=== PATIENT | male | born 1980 | race African-American/Black ===

== ENCOUNTER 2021-03-09 14:57 | Inpatient (IN) | payer OTHER ==
--- NOTE | 2021-03-09 16:04 | ED ---
Chest Pain HPI - General Chief Complaint: Chest Pain Stated Complaint: Chest Pain Time Seen by Provider: 03/09/21 15:32 Source: patient Mode of arrival: ambulatory Limitations: no limitations - History of Present Illness Initial Comments: Jack is a 40-year-old male, cigarette smoker with no significant past medical history who presents to the ER today for reevaluation of chest pain with lab and EKG abnormalities which were diagnosed at an outside hospital. Patient reports in December of this year he received edema burn vaccine for COVID-19. Patient states that for approximately 3 weeks after the vaccine he had chest pain. That did seem to improve for nearly a month however he's had persistent shortness of breath and a cough which is productive of green phlegm. For the past 3 or 4 days he's had recurrent episodes of chest pain. 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 That workup found EKG with deep T-wave inversions laterally, troponin was 0.11 and 0.12 respectively. The hospital did not have cardiology availability and recommended transfer however due to capacity at all [facility] he was told he would be transferred to [place] or somewhere in [place]. Patient chose to leave [facility] and come to this hospital as this is closest to his home. Patient reports that this morning the pain was severe at the time of exam patient is not in any significant discomfort. - Related Data Home Medications Medication Instructions Recorded Confirmed No Known Home Medications 03/09/21 03/09/21 Allergies Allergy/AdvReac Type Severity Reaction Status Date / Time No Known Allergies Allergy Verified 03/09/21 16:48 Review of Systems ROS Statement: Those systems with pertinent positive or pertinent negative responses have been documented in the HPI. ROS Other: All systems not noted in ROS Statement are negative. EKG Findings - EKG Comments: EKG Findings:: EKG was obtained due to complaint of chest pain, EKG was obtained at 1523, rate is 81 rhythm is sinus there is a normal axis, there are normal intervals, ME 164 QRS [address] QTC [address] elevations but there are T-wave inversions in the inferior and lateral leads with deep T-wave inversions laterally. This is concerning for ischemia or inflammation. Past Medical History Past Medical History: No Reported History History of Any Multi-Drug Resistant Organisms: None Reported Past Surgical History: No Surgical Hx Reported Past Psychological History: No Psychological Hx Reported Smoking Status: Current every day smoker Past Alcohol Use History: None Reported Past Drug Use History: None Reported - Past Family History Mother Family Medical History: Hypertension Father Family Medical History: No Reported History General Exam - General Exam Comments Initial Comments: Physical Exam GENERAL: Patient is well-developed and well-nourished. Patient is nontoxic and well- hydrated and is in no distress. HENT: Normocephalic, Atraumatic. EYES: PERRL, EOMI PULMONARY: Unlabored respirations. No audible rales rhonchi or wheezing was noted. CARDIOVASCULAR: There is a regular rate and rhythm without any murmurs gallops or rubs. ABDOMEN: Soft and nontender with normal bowel sounds. SKIN: Skin is clear with no lesions or rashes and otherwise unremarkable. : Deferred NEUROLOGIC: Patient is alert and oriented x3. Moving all extremities spontaneously MUSCULOSKELETAL: Normal extremities with adequate strength and full range of motion. No lower extremity swelling or edema. No calf tenderness. PSYCHIATRIC: Normal psychiatric evaluation. Limitations: no limitations Course Vital Signs 03/09/21 03/09/21 03/09/21 15:07 15:41 18:05 Temperature 97.9 F Pulse Rate 89 86 73 Respiratory 18 20 20 Rate Blood Pressure 128/92 121/87 O2 Sat by Pulse 97 98 97 Oximetry 03/09/21 20:22 Temperature 98.2 F Pulse Rate 82 Respiratory 18 Rate Blood Pressure 114/81 O2 Sat by Pulse 98 Oximetry Chest Pain MDM - MDM EKG was obtained in triage, based on EKG abnormalities the patient was taken immediately to the resuscitation bay for complete cardiac workup History was obtained from the patient, outside labs were reviewed patient did have elevated d-dimer and troponin outside lab, EKG today is unchanged from EKG on 03/07 and 03/08 Repeat labs were obtained, patient's d-dimer is positive however patient had a get a PE study 2 days ago, patient's troponin is elevated more so today than previous. Patient will be started on anticoagulation and cardiology consult. Patient care discussed with Dr Nguyen who agrees with plan for trending troponins, heparinized, echo and request the inflammatory markers be obtained as well. These orders were placed. Patient care was discussed with Dr. Barrow of the [facility] who accepts the admission Disposition Clinical Impression: Elevated troponin, Chest pain Disposition: ADMITTED IP TO THIS HOSP Condition: Serious
[2021-03-09 16:13] LABS: Basophils # (A) 0.1 k/uL (0-0.2); Basophils % (A) 1 %; Eosinophils # (A) 0.2 k/uL (0-0.7); Eosinophils % (A) 4 %; HCT 45.3 % (39.0-53.0); Lymphocytes % (A) 35 %; MCH 30.6 pg (25.0-35.0); MCHC 33.2 g/dL (31.0-37.0); MCV 92.1 fL (80.0-100.0); Mean Platelet Volume 9.7; Monocytes # (A) 0.5 k/uL (0-1.0); Monocytes % (A) 8 %; Neutrophils # (A) 2.6 k/uL (1.3-7.7); Neutrophils % (A) 48 %; Platelet Count 205 k/uL (150-450); RBC 4.91 m/uL (4.30-5.90); RDW 13.8 % (11.5-15.5); WBC 5.5 k/uL (3.8-10.6)
[2021-03-09 16:25] LABS: Partial Thromboplastin Time 25.9 sec (22.0-30.0); Prothrombin Time 10.8 sec (9.0-12.0)
[2021-03-09 16:26] LABS: ALT 44 U/L (4-49); AST 50 U/L (17-59); African American GFR (CKD) >90 (>60 ml/min/1.73 sqM); Albumin 4.3 g/dL (3.5-5.0); Alkaline Phosphatase 88 U/L (38-126); Anion Gap 9 mmol/L; Blood Urea Nitrogen 10 mg/dL (9-20); Calcium 10.1 mg/dL (8.4-10.2); Carbon Dioxide 23 mmol/L (22-30); Chloride 104 mmol/L (98-107); Glucose 94 mg/dL (74-99); Magnesium 1.5 mg/dL (1.6-2.3); Non-African American GFR(CKD) >90 (>60 ml/min/1.73 sqM); Sodium 136 mmol/L (137-145); Total Bilirubin 0.6 mg/dL (0.2-1.3); Total Protein 8.1 g/dL (6.3-8.2)
--- NOTE | 2021-03-09 16:26 | XR ---
EXAMINATION TYPE: XR chest 2V DATE OF EXAM: 03/09/2021 COMPARISON: None HISTORY: 40 year-old male chest pain and abnormal EKG TECHNIQUE: PA and lateral views FINDINGS: Heart normal size. Aorta within normal limits. Masslike perihilar opacities. Interstitial prominence. No pleural effusion. IMPRESSION: Unable to exclude underlying hilar lymphadenopathy or hilar masses. Further evaluation is warranted. Interstitial density could reflect bronchitis, chronic asthma, or atypical pneumonia.
[2021-03-09 16:27] LABS: Potassium 4.6 mmol/L (3.5-5.1)
[2021-03-09] MEDS ORDERED: HEPARIN SODIUM 1,000 UN/ML (10ML VL) IV PRN (17:03)
[2021-03-09] MEDS ORDERED: HEPARIN SODIUM 1,000 UN/ML (10ML VL) IV ONE (17:03)
[2021-03-09] MEDS: HEPARIN SOD,PORK IN 0.45% NACL 25,000 UNIT in 0.45% NACL 1 250ML.BAG IV SCH (17:36)
[2021-03-09 18:31] LABS: INR 1.2 (<1.2); Partial Thromboplastin Time 75.8 sec (22.0-30.0); Prothrombin Time 12.7 sec (9.0-12.0)
--- NOTE | 2021-03-09 23:57 | P.HPIM ---
History of Present Illness H&P Date: 03/09/21 The patient is a 40-year-old male with a PMH of tobacco abuse (who presents to the emergency room with complaints of chest discomfort and shortness of breath. The patient reports that his symptoms initially started a day after he received his Moderna COVID-19 vaccine on 12/17/2020. He reports having intermittent substernal chest discomfort, exertional for roughly 3 weeks after which it resolved spontaneously. He reports that the pain again returned 2-3 weeks ago and is now accompanied with shortness of breath. He reports that the pain continues to be exertional, starting from his upper chest and radiating to the right and left sides of his chest, 10 out of 10 on maximal intensity, nonple uritic, alleviated with rest, strongly exertional in nature. 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 The patient was advised that since the facility did not have a cardiology service, that he would need to be transferred to hospitals in either [place] or [place], at which time the patient decided to sign out AGAINST MEDICAL ADVICE and returned to his home state of [place] and subsequently presented to our emergency room. He states that he's continued to have intermittent substernal discomfort which is not exertional and nonexertional in nature, 4 out of 10 at time of the interview. Denied fever, chills, cough. Denied headaches, neck pain, visual disturbances, weakness, numbness, tingling. Denied nausea, vomiting, abdominal pain, diarrhea. EKG in the emergency room revealed a normal sinus rhythm with left axis deviation at [address] depressions in inferior leads 2, 3, aVF, along with V3 to V6. Laboratory evaluation revealed a troponin of 0.285 and magnesium 1.5. The patient was started on heparin infusion and is being admitted for further management including cardiology consult. Review of systems: Pertinent positives and negatives as discussed in HPI, a complete review of systems was performed and all other systems are negative. Physical examination: General: non toxic, no distress, appears at stated age, overweight Derm: no unusual rashes/lesions no unusual ecchymoses, warm, dry Head: atraumatic, normocephalic, symmetric Eyes: EOMI, no lid lag, anicteric sclera, pupils equal round reactive to light ENT: Nose and ears atraumatic, no thrush, no pharyngeal erythema Neck: No thyromegaly, no cervical lymphadenopathy, trachea midline, supple Mouth: no lip lesion, mucus membranes moist Cardiovascular: S1S2 reg, no murmur, positive posterior tibial pulse bilateral, no edema, capillary refill less than 2 seconds Lungs: CTA bilateral, no rhonchi, no rales , no accessory muscle use Abdominal: soft, nontender to palpation, no guarding, no appreciable organomegaly, normal bowel sounds Ext: no gross muscle atrophy, muscle strength 5 out of 5 in all 4 extremities grossly, no contractures, Neuro: CN II-XI grossly intact, light touch intact all 4 extremities, finger to nose within normal limits, Psych: Alert, oriented, appropriate affect Assessment/plan Chest pain, NSTEMI vs Myocarditis in setting of COVID vaccine administration -Cardiac consulted -Cardiac monitoring -Monitor inflammatory markers -Echocardiogram ordered -Trend troponin -Continue with aspirin Hypomagnesemia -Replace and monitor DVT prophylaxis -Heparin infusion The patient is admitted with an anticipated greater than 2 midnight stay for evaluation of chest pain CODE STATUS: Full Code Discussed with: Patient Anticipated discharge date: 2-[address]: Home Past Medical History Past Medical History: No Reported History History of Any Multi-Drug Resistant Organisms: None Reported Past Surgical History: No Surgical Hx Reported Past Anesthesia/Blood Transfusion Reactions: No Reported Reaction Past Psychological History: No Psychological Hx Reported Smoking Status: Current every day smoker Past Alcohol Use History: None Reported Past Drug Use History: None Reported - Past Family History Mother Family Medical History: Hypertension Father Family Medical History: Hypertension Medications and Allergies Home Medications Medication Instructions Recorded Confirmed Type No Known Home Medications 03/09/21 03/09/21 History Allergies Allergy/AdvReac Type Severity Reaction Status Date / Time No Known Allergies Allergy Verified 03/09/21 16:48 Physical Exam Vitals: Vital Signs Temp Pulse Pulse Resp BP BP Pulse Ox 03/09/21 21:00 97.7 F 84 20 124/86 99 03/09/21 20:22 98.2 F 82 18 114/81 98 03/09/21 18:05 73 20 121/87 97 03/09/21 15:41 86 20 98 03/09/21 15:07 97.9 F 89 18 128/92 97 Intake and Output 03/09/21 03/09/21 03/10/21 14:59 22:59 06:59 Intake Total 500 Balance 500 Intake: Oral 500 Other: Voiding Method Toilet Weight 90.718 kg Results CBC & Chem 7: 03/09/21 16:00 03/09/21 16:00 Labs: Abnormal Lab Results - Last 24 Hours (Table) 03/09/21 03/09/21 03/09/21 Range/Units 16:00 16:00 16:00 PT (9.0-12.0) sec INR (<1.2) APTT (22.0-30.0) sec D-Dimer 0.91 H (<0.60) mg/L FEU Sodium 136 L (137-145) mmol/L Magnesium 1.5 L (1.6-2.3) mg/dL Troponin I 0.285 H* (0.000-0.034) ng/mL 03/09/21 03/09/21 03/09/21 Range/Units 18:11 18:11 21:32 PT 12.7 H (9.0-12.0) sec INR 1.2 H (<1.2) APTT 75.8 H (22.0-30.0) sec D-Dimer (<0.60) mg/L FEU Sodium (137-145) mmol/L Magnesium (1.6-2.3) mg/dL Troponin I 0.266 H* 0.282 H* (0.000-0.034) ng/mL Thrombosis Risk Factor Assmnt - Choose All That Apply Each Factor Represents 1 point: Obesity (BMI >25), Serious lung disease incl. pneumonia (< 1month) Other Risk Factors: No Other congenital or acquired thrombophilia - If yes, enter type in comment: No Thrombosis Risk Factor Assessment Total Risk Factor Score: 2 Thrombosis Risk Factor Assessment Level: Low Risk
[2021-03-10] MEDS: MAGNESIUM SULFATE-D5W PMX 1 GM in DEXTROSE/WATER 1 100ML.BAG IVPB SCH ×2 (01:12→02:41)
[2021-03-10] MEDS ORDERED: HEPARIN SODIUM,PORCINE 10,000 UNIT in SODIUM CHLORIDE 0.9% 1,000 ML IRRIGATION PRN (07:00)
[2021-03-10] MEDS ORDERED: HEPARIN SODIUM,PORCINE 2,500 UNIT in SODIUM CHLORIDE 0.9% 250 ML IRRIGATION PRN (07:00)
[2021-03-10] MEDS ORDERED: ALPRAZolam 0.5 MG TAB PO PRN (07:18)
[2021-03-10] MEDS ORDERED: ASPIRIN 325 MG TAB PO STA (07:18)
[2021-03-10] MEDS ORDERED: ATORVASTATIN 80 MG TAB PO STA (07:18)
[2021-03-10] MEDS ORDERED: ALPRAZolam 0.25 MG TAB PO PRN (07:18)
[2021-03-10 08:38] LABS: INR 1.1 (<1.2); Partial Thromboplastin Time 55.8 sec (22.0-30.0); Prothrombin Time 11.5 sec (9.0-12.0)
--- NOTE | 2021-03-10 08:38 | P.CRDCN ---
History of Present Illness Consult date: 03/10/21 Chief complaint: Chest pain History of present illness: This is a very pleasant 40-year-old gentleman with a past medical history significant for smoking was admitted to the hospital for further evaluation of chest discomfort. The patient has been experiencing intermittent episodes of chest discomfort started about 2 months ago. 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 He is from this area. He has been experiencing intermittent episodes of chest discomfort seems to be concerning for angina. He stated that the chest discomfort mostly with exertion but sometimes with resting. Its in the middle of the chest as a pressure on the chest with radiation to the right arm as well as to the neck. Its associated with shortness of breath and sometimes with sweating. No dizziness or lightheadedness and no feeling of heart racing or fluttering and no presyncope or syncope. His troponin came in to be abnormal. The EKG is very concerning for severe underlying coronary artery disease involving the LAD. He does have T-wave inversion with biphasic T wave as well in the anteroseptal leads. Echocardiogram is in process to be done. Currently he is on heparin. Giving the above I recommended proceeding with coronary angiogram to rule out severe underlying coronary artery disease. His risk factors include only smoking but he stated he smoked marijuana. I'm going to obtain a urine drug screen as well. Past Medical History Past Medical History: No Reported History History of Any Multi-Drug Resistant Organisms: None Reported Past Surgical History: No Surgical Hx Reported Past Anesthesia/Blood Transfusion Reactions: No Reported Reaction Past Psychological History: No Psychological Hx Reported Smoking Status: Current every day smoker Past Alcohol Use History: None Reported Past Drug Use History: None Reported - Past Family History Mother Family Medical History: Hypertension Father Family Medical History: Hypertension Medications and Allergies Home Medications Medication Instructions Recorded Confirmed Type No Known Home Medications 03/09/21 03/09/21 History Allergies Allergy/AdvReac Type Severity Reaction Status Date / Time No Known Allergies Allergy Verified 03/09/21 16:48 Physical Exam Vitals: Vital Signs Temp Pulse Pulse Resp BP BP Pulse Ox 03/10/21 04:00 97.6 F 66 16 119/83 95 03/10/21 00:00 98.1 F 96 16 114/79 98 03/09/21 21:00 97.7 F 84 20 124/86 99 03/09/21 20:22 98.2 F 82 18 114/81 98 03/09/21 18:05 73 20 121/87 97 03/09/21 15:41 86 20 98 03/09/21 15:07 97.9 F 89 18 128/92 97 Intake and Output 03/09/21 03/10/21 03/10/21 22:59 06:59 14:59 Intake Total 500 72.833 Balance 500 72.833 Intake: Intake, IV Titration 72.833 Amount Heparin Sod,Pork in 0.45% 72.833 NaCl 25,000 unit In 0.45 % NaCl 1 250ml.bag @ 11. 023 UNITS/KG/HR 10 mls/hr IV .Q24H [facility] Rx#: [id number] Oral 500 Other: Voiding Method Toilet Toilet # Voids 1 Weight 90.718 kg - Constitutional General appearance: no acute distress - Respiratory Respiratory: bilateral: CTA - Cardiovascular Rhythm: regular Heart sounds: normal: S1, S2 Abnormal Heart Sounds: systolic murmur Results 03/09/21 16:00 03/09/21 16:00 Cardiac Enzymes 03/09/21 03/09/21 03/09/21 Range/Units 16:00 16:00 18:11 AST 50 (17-59) U/L Troponin I 0.285 H* 0.266 H* (0.000-0.034) ng/mL 03/09/21 Range/Units 21:32 AST (17-59) U/L Troponin I 0.282 H* (0.000-0.034) ng/mL Coagulation 03/09/21 03/09/21 03/09/21 Range/Units 16:00 18:11 23:00 PT 10.8 12.7 H (9.0-12.0) sec APTT 25.9 75.8 H 56.7 H (22.0-30.0) sec CBC 03/09/21 Range/Units 16:00 WBC 5.5 (3.8-10.6) k/uL RBC 4.91 (4.30-5.90) m/uL Hgb 15.0 (13.0-17.5) gm/dL Hct 45.3 (39.0-53.0) % Plt Count 205 (150-450) k/uL Comprehensive Metabolic Panel 03/09/21 Range/Units 16:00 Sodium 136 L (137-145) mmol/L Potassium 4.6 (3.5-5.1) mmol/L Chloride 104 (98-107) mmol/L Carbon Dioxide 23 (22-30) mmol/L BUN 10 (9-20) mg/dL Creatinine 0.89 (0.66-1.25) mg/dL Glucose 94 (74-99) mg/dL Calcium 10.1 (8.4-10.2) mg/dL AST 50 (17-59) U/L ALT 44 (4-49) U/L Alkaline Phosphatase 88 (38-126) U/L Total Protein 8.1 (6.3-8.2) g/dL Albumin 4.3 (3.5-5.0) g/dL Current Medications Generic Name Dose Route Start Last Admin Trade Name Freq PRN Reason Stop Dose Admin Alprazolam 0.25 mg 03/10/21 07:18 Alprazolam 0.25 Mg Tab PO Q6HR PRN Mild Anxiety Alprazolam 0.5 mg 03/10/21 07:18 Alprazolam 0.5 Mg Tab PO Q6HR PRN Moderate Anxiety Aspirin 325 mg 03/11/21 09:00 Aspirin 325 Mg Tab PO DAILY TAJ Heparin Sodium (Porcine) 0 unit 03/09/21 17:03 Heparin Sodium 1,000 Un/Ml (10ml Vl) IV PER PROTOCOL PRN Low PTT Protocol Heparin Sodium/Sodium Chloride 250 mls @ 10 mls/hr 03/09/21 17:15 03/10/21 00:53 25,000 unit/ Sodium Chloride IV 11.023 units/kg/hr .Q24H TAJ 10 mls/hr Titration Protocol 11.023 UNITS/KG/HR Sodium Chloride 1,000 ml/ IV 1,000 mls @ 90.718 mls/hr 03/10/21 07:30 Solution IV .Q11H2M TAJ 1 ML/KG/HR Heparin Sodium (Porcine) 10, 1,001 mls @ 999 mls/hr 03/10/21 07:00 000 unit/ Sodium Chloride IRRIGATION 03/10/21 23:00 ONCE PRN INTRA-OP Heparin Sodium (Porcine) 2,500 250.5 mls @ 250 mls/hr 03/10/21 07:00 unit/ Sodium Chloride IRRIGATION 03/10/21 23:00 ONCE PRN INTRA-OP Intake and Output 03/09/21 03/10/21 03/10/21 22:59 06:59 14:59 Intake Total 500 72.833 Balance 500 72.833 Intake: Intake, IV Titration 72.833 Amount Heparin Sod,Pork in 0.45% 72.833 NaCl 25,000 unit In 0.45 % NaCl 1 250ml.bag @ 11. 023 UNITS/KG/HR 10 mls/hr IV .Q24H [facility] Rx#: [id number] Oral 500 Other: Voiding Method Toilet Toilet # Voids 1 Weight 90.718 kg 03/09/21 16:00 03/09/21 16:00 Assessment and Plan Assessment: Assessment #1 acute non-ST elevation myocardial infarction #2 history of smoking Plan #1 I advised proceeding with coronary angiogram #2 further recommendation to follow that #3 obtain an echocardiogram was Doppler #4 anti-ischemic medication #6 antiplatelet as well as anticoagulation
[2021-03-10 09:05] LABS: Basophils # (A) 0.1 k/uL (0-0.2); Basophils % (A) 2 %; Eosinophils # (A) 0.3 k/uL (0-0.7); Eosinophils % (A) 6 %; HCT 44.7 % (39.0-53.0); HGB 14.5 gm/dL (13.0-17.5); Lymphocytes # (A) 2.4 k/uL (1.0-4.8); Lymphocytes % (A) 51 %; MCH 30.4 pg (25.0-35.0); MCHC 32.5 g/dL (31.0-37.0); MCV 93.4 fL (80.0-100.0); Mean Platelet Volume 9.4; Monocytes # (A) 0.4 k/uL (0-1.0); Monocytes % (A) 9 %; Neutrophils # (A) 1.4 k/uL (1.3-7.7); Neutrophils % (A) 30 %; Platelet Count 206 k/uL (150-450); RBC 4.78 m/uL (4.30-5.90); RDW 13.8 % (11.5-15.5); WBC 4.7 k/uL (3.8-10.6)
[2021-03-10] MEDS: SODIUM CHLORIDE 0.9% 1,000 ML in EMPTY BAG 1 BAG IV SCH (09:06)
[2021-03-10 09:30] LABS: Magnesium 1.7 mg/dL (1.6-2.3)
--- NOTE | 2021-03-10 10:27 | P.CNPUL ---
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 No diaphoresis and no sweating. No radiation to his shoulder or back. No palpitation. No syncope. He has a dry cough. He has exertional dyspnea and the patient has been getting short of breath with h eavy exertion. He came into the hospital. EKG was abnormal and the patient had abnormal troponins. The patient was started on IV heparin and cardiology consultation was requested. On EKG, there was some poor R-wave progression and diffuse T-wave inversions involving the anterolateral leads. Upon further workup, chest x-ray showed bulky knees final lymph nodes. This was followed up by a CT angiogram of the chest that showed mediastinal lymphadenopathy involving the paratracheal, AP window, perihilar, and subcarinal lymph nodes. There was also evidence of some background emphysema and some mild interstitial pulmonary changes. On this is a concern for sarcoidosis and for that reason, a consultation was requested. The patient has no fever. The patient has no chills. The patient has 8 pound weight loss over the past 2 months. No history of uveitis. No history of pink eye. No history of uveitis. No history of kidney stones. No other constitutional symptoms. Most of malignancy. No history of exposure to industrial products or animal products. Review of Systems Constitutional: Denies chills, Denies fever Eyes: denies as per HPI, denies blurred vision, denies bulging eye, denies decreased vision, denies diplopia, denies discharge, denies dry eye, denies irritation, denies itching, denies pain, denies photophobia, denies loss of peripheral vision, denies loss of vision, denies tunnel vision/blind spots Ears, nose, mouth and throat: Reports as per HPI Breasts: absent: as per HPI, gynecomastia Cardiovascular: Reports chest pain Respiratory: Reports cough, Reports dyspnea Gastrointestinal: Reports as per HPI Genitourinary: Reports as per HPI Musculoskeletal: Reports as per HPI Musculoskeletal: absent: ankle pain, ankle stiffness, ankle swelling, as per HPI, elbow pain, elbow stiffness, elbow swelling, foot pain, foot stiffness, foot swelling, hand pain, hand stiffness, hand swelling, hip pain, hip stiffness, hip swelling, knee pain, knee stiffness, knee swelling, shoulder pain, shoulder stiffness, shoulder swelling, wrist pain, wrist stiffness, wrist swelling Integumentary: Reports as per HPI Neurological: Reports as per HPI Psychiatric: Reports as per HPI Endocrine: Reports as per HPI Hematologic/Lymphatic: Reports as per HPI Allergic/Immunologic: Reports as per HPI Past Medical History Past Medical History: No Reported History History of Any Multi-Drug Resistant Organisms: None Reported Past Surgical History: No Surgical Hx Reported Past Anesthesia/Blood Transfusion Reactions: No Reported Reaction Past Psychological History: No Psychological Hx Reported Smoking Status: Current every day smoker Past Alcohol Use History: None Reported Past Drug Use History: None Reported - Past Family History Mother Family Medical History: Hypertension Father Family Medical History: Hypertension Medications and Allergies Home Medications Medication Instructions Recorded Confirmed Type No Known Home Medications 03/09/21 03/09/21 History Allergies Allergy/AdvReac Type Severity Reaction Status Date / Time No Known Allergies Allergy Verified 03/09/21 16:48 Physical Exam Vitals: Vital Signs Temp Pulse Pulse Resp BP BP Pulse Ox 03/10/21 08:00 70 18 123/87 99 03/10/21 04:00 97.6 F 66 16 119/83 95 03/10/21 00:00 98.1 F 96 16 114/79 98 03/09/21 21:00 97.7 F 84 20 124/86 99 03/09/21 20:22 98.2 F 82 18 114/81 98 03/09/21 18:05 73 20 121/87 97 03/09/21 15:41 86 20 98 03/09/21 15:07 97.9 F 89 18 128/92 97 Intake and Output 03/09/21 03/10/21 03/10/21 22:59 06:59 14:59 Intake Total 500 72.833 Balance 500 72.833 Intake: Intake, IV Titration 72.833 Amount Heparin Sod,Pork in 0.45% 72.833 NaCl 25,000 unit In 0.45 % NaCl 1 250ml.bag @ 11. 023 UNITS/KG/HR 10 mls/hr IV .Q24H COUNTS INCLUDE 234 BEDS AT THE [facility] Rx#: [id number] Oral 500 Other: Voiding Method Toilet Toilet Toilet # Voids 1 Weight 90.718 kg The patient appeared well nourished and normally developed. Vital signs as documented. Head exam is unremarkable. No scleral icterus or corneal arcus noted. Neck is without jugular venous distension, thyromegaly, or carotid bruits. Carotid upstrokes are brisk bilaterally. Lungs are clear to auscultation and percussion. Cardiac exam reveals the PMI to be normally sized and situated. Rhythm is regular. First and second heart sounds normal. No murmurs, rubs or gallops. Abdominal exam reveals normal bowel sounds, no masses, no organomegaly and no aortic enlargement. Extremities are nonedematous and both femoral and pe kristan pulses are normal.Examination of the skin revealed no evidence of significant rashes, suspicious appearing nevi or other concerning lesions.Neurologically, the patient is awake and alert and the patient does not have any focal neurological deficit. Cranial nerves are essentially intact. Results - Laboratory Findings CBC and BMP: 03/10/21 07:38 03/09/21 16:00 PT/INR, D-dimer PT 11.5 sec (9.0-12.0) 03/10/21 07:38 INR 1.1 (<1.2) 03/10/21 07:38 D-Dimer 0.91 mg/L FEU (<0.60) H 03/09/21 16:00 Abnormal lab findings: Abnormal Labs 03/09/21 03/09/21 03/09/21 16:00 16:00 16:00 PT INR APTT D-Dimer 0.91 H Sodium 136 L Magnesium 1.5 L Troponin I 0.285 H* 03/09/21 03/09/21 03/09/21 18:11 18:11 21:32 PT 12.7 H INR 1.2 H APTT 75.8 H D-Dimer Sodium Magnesium Troponin I 0.266 H* 0.282 H* 03/09/21 03/10/21 23:00 07:38 PT INR APTT 56.7 H 55.8 H D-Dimer Sodium Magnesium Troponin I - Diagnostic Findings Chest x-ray: image reviewed CT scan - chest: image reviewed Assessment and Plan Plan: 1 chest pain under investigation. The patient abnormal EKG with T-wave inversion and ST segment changes in addition to abnormal troponin elevation. Consider underlying coronary artery disease. The patient is to undergo cardiac catheterization. He is chest pain-free. He is on IV heparin. Echocardiogram is in progress 2 abnormal CTA of the chest with mediastinal lymphadenopathy and increased interstitial markings, could be interstitial fluid versus ILD. High suspicion for sarcoidosis. 3 smoker Plan Keep the patient IV heparin 2-D echocardiogram Cardiac catheterization today Check angiotensin converting enzyme inhibitor levels Outpatient workup regarding the son lymphadenopathy. Likely will need a bronchoscopy, chest buccal biopsy entrance but and he did aspirate of mediastinal lymph nodes regarding the possibility of sarcoidosis. Lymphoma is felt to be less likely. Other form of granulomatous infections are felt to be less likely. Smoking cessation counseling was done
[2021-03-10] MEDS ORDERED: LIDOCAINE 1% INJ 10MG/ML (20 ML MDV) ONE (11:13)
[2021-03-10] MEDS ORDERED: fentaNYL (PF) 50 MCG/ML 2 ML AMP ONE (11:13)
[2021-03-10] MEDS ORDERED: VERAPAMIL 2.5 MG/ML 2 ML AMP ONE (11:13)
[2021-03-10] MEDS ORDERED: HEPARIN SODIUM 1,000 UN/ML (10ML VL) ONE (11:13)
[2021-03-10] MEDS ORDERED: IV FLUID CONTINUATION 900 ML IV ONE (11:20)
[2021-03-10] MEDS ORDERED: MIDAZOLAM 2 MG/2 ML VIAL IV ONE (11:20)
[2021-03-10] MEDS ORDERED: fentaNYL (PF) 50 MCG/ML 2 ML AMP IV ONE ×2 (11:25→11:47)
[2021-03-10] MEDS ORDERED: LIDOCAINE 1% INJ 10MG/ML (20 ML MDV) SQ ONE (11:43)
[2021-03-10] MEDS ORDERED: VERAPAMIL SYRINGE (5 MG/10 ML) INTRAARTER ONE (11:47)
[2021-03-10] MEDS ORDERED: HYDROmorphone 0.5 MG/0.5 ML SYRINGE IVP ONE (11:49)
[2021-03-10] MEDS ORDERED: FUROSEMIDE 10 MG/ML 4 ML VIAL IV ONE (12:04)
[2021-03-10] MEDS ORDERED: PRASUGREL 10 MG TAB ONE (12:07)
[2021-03-10] MEDS ORDERED: PRASUGREL 10 MG TAB PO ONE (12:11)
[2021-03-10] MEDS ORDERED: IOPAMIDOL-370 125ML BTL INJ ONE (12:15)
[2021-03-10] MEDS ORDERED: ATROPINE SULFATE 0.1 MG/ML 10ML SYRINGE IV PRN (12:29)
[2021-03-10] MEDS ORDERED: NITROGLYCERIN SL TABS 0.4 MG TAB SUBLINGUAL PRN (12:29)
[2021-03-10] MEDS ORDERED: ZOLPIDEM 5 MG TAB PO PRN (12:29)
[2021-03-10] MEDS ORDERED: RX INFO: IV CONTRAST WAS GIVEN 1 EACH MISC MISCELLANE PRN (12:29)
[2021-03-10] MEDS ORDERED: MAG HYDROX/AL HYDROX/SIMETH 30 ML CUP PO PRN (12:29)
[2021-03-10] MEDS ORDERED: SODIUM CHLORIDE 0.9% 1,000 ML IV SCH (12:30)
--- NOTE | 2021-03-10 13:14 | CC ---
CARDIAC CATHETERIZATION REPORT CARDIAC CATHETERIZATION AND PERCUTANEOUS CORONARY INTERVENTION: DATE OF SERVICE: 03/10/2021 PERFORMING PHYSICIAN: Prosper Davis M.D. PROCEDURES PERFORMED: 1. Selective right and left coronary angiogram. 2. Left heart catheterization. 3. Successful stenting of the proximal left anterior descending artery using a 4.0 x 23 mm Xience drug-eluting stent with an excellent angiographic result and reduction of stenosis from 99.9% to 0%. INDICATION: This is a 40-year-old -[place] gentleman with extensive history of smoking who presented initially to a hospital in [place] with chest discomfort and he was ruled in for acute coronary syndrome. The EKG showed deep T-wave inversion in the anteroseptal leads concerning for severe underlying coronary artery disease. He was transferred to [facility] because he lives in this area. APPROACH: Right radial artery. COMPLICATIONS: None. LEVEL OF SEDATION: Moderate, with sedation length of 40 minutes. PROCEDURE DESCRIPTION: After obtaining informed consent, the patient was brought to the cardiac dental laboratory assistant. The right radial artery was cannulated using micropuncture technique under ultrasound guidance. The micropuncture wire passed easily. Then I placed a 6-Yoruba sheath at the right radial artery. He was given 2 mg of verapamil IA and 8000 units of heparin IV. Selective right and left coronary angiogram was performed with JR4 and JL3.5 catheters. Left heart catheterization was performed using the JR4 catheter, which crossed the aortic valve. Then I did pullback across the valve. The procedure was completed without any complication. SELECTIVE CORONARY ANGIOGRAM: 1. The right coronary artery is a moderate-caliber vessel. It is a dominant vessel. The RCA is diffusely diseased, up to about 80% to 99% on a long segment, and the RCA fills by collaterals from the left coronary system. 2. The left main is a large-caliber vessel. The left main is angiographically normal. It bifurcates into LCX and LAD. 3. The LCX is a large-caliber vessel. The proximal LCX appeared to be angiographically normal and gives rise to a large OM branch which has mild disease only in the proximal portion. The left circumflex continues after that in the AV groove as a moderate-caliber vessel with moderate to severe diffuse disease. 4. The LAD. The proximal LAD by the bifurcation of a diagonal branch has a lesion that appeared to be in the range of 99.9%. The proximal diagonal branch appeared to have mild disease only. The mid LAD has a second diagonal branch which seems to have mild disease only, and the LAD in the mid and distal portions appeared to be angiographically normal. 5. HEMODYNAMICS: The LVEDP was 35 mmHg without significant gradient across the aortic valve. PERCUTANEOUS CORONARY INTERVENTION OF THE LAD: Anticoagulation was initiated using heparin with continuous ACT monitoring throughout the procedure. Subsequently I did engage the left main using JL3.5 guiding catheter. I did wire it using a run-through wire. Balloon angioplasty was attempted using a 3.5 mm balloon, but the balloon was , and for that reason I decided to go with a stent. I did deploy a 4.0 x 23 mm Xience drug-eluting stent where the stent was positioned under fluoroscopic guidance and deployed under 16 atmospheres for 20 seconds. I did post- dilate the stent using a 4 mm NC balloon. The final angiogram showed excellent angiographic results and the procedure was completed without any complication. CONCLUSION: 1. Acute pvi-KR-peeagdcpe myocardial infarction in this 40-year-old gentleman with history of smoking. 2. Critical disease with thrombotic lesion involving the proximal left anterior descending artery. I performed successful stenting of the LAD. 3. Severe diffuse disease involving a medium-sized dominant right coronary artery. The RCA fills by collaterals from the left coronary system. 4. Severely elevated left-sided filling pressure. POSTPROCEDURE MANAGEMENT: 1. Aggressive cholesterol control. 2. Smoking cessation. 3. Dual anti-platelet therapy. 4. Diuretics. 5. Echocardiogram. 6. Follow up with the patient. MMODL / IJN: [id number] /
[2021-03-10 13:15] VITALS: BMI 27.8
--- NOTE | 2021-03-10 14:01 | P.PN ---
Subjective Patient is doing well today. He denies any chest pain this morning. Objective - Vital Signs Vital signs: Vital Signs Temp 97.6 F 03/10/21 04:00 Pulse 89 03/10/21 13:14 Resp 16 03/10/21 13:14 BP 138/112 03/10/21 13:14 Pulse Ox 95 03/10/21 13:14 Intake & Output 03/09/21 03/10/21 03/10/21 18:59 06:59 18:59 Intake Total 572.833 0 Output Total 250 Balance 572.833 -250 Weight 90.718 kg 90.718 kg 90.718 kg Intake: Intake, IV Titration 72.833 Amount Heparin Sod,Pork in 0.45% 72.833 NaCl 25,000 unit In 0.45 % NaCl 1 250ml.bag @ 11. 023 UNITS/KG/HR 10 mls/hr IV .Q24H [facility] Rx#: [id number] Oral 500 0 Output: Urine 250 Other: Voiding Method Toilet Toilet # Voids 1 - Exam General: The patient is awake and alert, in no distress Eye: there is normal conjunctiva bilaterally. Neck: The neck is supple, there is no JVD. Cardiovascular: Normal S1-S2, no S3-S4, no murmurs. Respiratory: Lungs clear to auscultation bilaterally Gastrointestinal: Abdomen is soft, nontender Musculoskeletal: There is no pedal edema. Neurological:. Speech is normal. Skin: Skin is warm and dry - Labs CBC & Chem 7: 03/10/21 07:38 03/09/21 16:00 Labs: Abnormal Lab Results - Last 24 Hours (Table) 03/09/21 03/09/21 03/09/21 Range/Units 16:00 16:00 16:00 PT (9.0-12.0) sec INR (<1.2) APTT (22.0-30.0) sec D-Dimer 0.91 H (<0.60) mg/L FEU Sodium 136 L (137-145) mmol/L Magnesium 1.5 L (1.6-2.3) mg/dL Troponin I 0.285 H* (0.000-0.034) ng/mL C-Reactive Protein (<1.0) mg/dL 03/09/21 03/09/2103/09/21 Range/Units 18:11 18:11 21:32 PT 12.7 H (9.0-12.0) sec INR 1.2 H (<1.2) APTT 75.8 H (22.0-30.0) sec D-Dimer (<0.60) mg/L FEU Sodium (137-145) mmol/L Magnesium (1.6-2.3) mg/dL Troponin I 0.266 H* 0.282 H* (0.000-0.034) ng/mL C-Reactive Protein (<1.0) mg/dL 03/09/21 03/10/21 03/10/21 Range/Units 23:00 07:38 07:38 PT (9.0-12.0) sec INR (<1.2) APTT 56.7 H 55.8 H (22.0-30.0) sec D-Dimer (<0.60) mg/L FEU Sodium (137-145) mmol/L Magnesium (1.6-2.3) mg/dL Troponin I (0.000-0.034) ng/mL C-Reactive Protein 1.0 H (<1.0) mg/dL Assessment and Plan Assessment: The patient is a 40-year-old male with a PMH of tobacco abuse (who presents to the emergency room with complaints of chest discomfort and shortness of breath. The patient reports that his symptoms initially started a day after he received his Moderna COVID-19 vaccine on 12/17/2020. He reports having intermittent substernal chest discomfort, exertional for roughly 3 weeks after which it resolved spontaneously. He reports that the pain again returned 2-3 weeks ago and is now accompanied with shortness of breath. He reports that the pain continues to be exertional, starting from his upper chest and radiating to the right and left sides of his chest, 10 out of 10 on maximal intensity, nonpleuritic, alleviated with rest, strongly exertional in nature. 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 The patient was advised that since the facility did not have a cardiology service, that he would need to be transferred to hospitals in either [place] or [place], at which time the patient decided to sign out AGAINST MEDICAL ADVICE and returned to his home state of [place] and subsequently presented to our emergency room. He states that he's continued to have intermittent substernal discomfort which is not exertional and nonexertional in nature, 4 out of 10 at time of the interview. Denied fever, chills, cough. Denied headaches, neck pain, visual disturbances, weakness, numbness, tingling. Denied nausea, vomiting, abdominal pain, diarrhea. EKG in the emergency room revealed a normal sinus rhythm with left axis deviation at [address] depressions in inferior leads 2, 3, aVF, along with V3 to V6. Laboratory evaluation revealed a troponin of 0.285 and magnesium 1.5. The patient was started on heparin infusion and is being admitted for further management including cardiology consult. Assessment/plan Chest pain, NSTEMI vs Myocarditis in setting of COVID vaccine administration -Cardiac consulted plan for left heart catheterization in the morning -Cardiac monitoring -Monitor inflammatory markers -Echocardiogram ordered -Continue with aspirin, Lipitor, metoprolol Hypomagnesemia -Replaced DVT prophylaxis -Heparin infusion The patient is admitted with an anticipated greater than 2 midnight stay for evaluation of chest pain CODE STATUS: Full Code Discussed with: Patient Anticipated discharge date: 2-[address]: Home
[2021-03-10] MEDS: FUROSEMIDE 20 MG TAB PO SCH (17:20)
[2021-03-10] MEDS: HEPARIN SOD,PORK IN 0.45% NACL 25,000 UNIT in 0.45% NACL 1 250ML.BAG IV SCH (17:20)
--- NOTE | 2021-03-10 17:32 | ECHOF ---
Referral Reason:elevated trop - myocarditis MEASUREMENTS -------- HEIGHT: 180.3 cm WEIGHT: 90.7 kg BP: 119/83 RVIDd: 2.9 cm (< 3.3) IVSd: 1.4 cm (0.6 - 1.1) LVIDd: 4.8 cm (3.9 - 5.3) LVPWd: 1.3 cm (0.6 - 1.1) IVSs: 1.5 cm LVIDs: 4.6 cm LVPWs: 1.4 cm LA Diam: 3.9 cm (2.7 - 3.8) LAESV Index (A-L): 22.82 ml/m Ao Diam: 3.0 cm (2.0 - 3.7) AV Cusp: 2.0 cm (1.5 - 2.6) MV EXCURSION: 16.920 mm (> 18.000) MV EF SLOPE: 137 mm/s (70 - 150) EPSS: 1.1 cm MV E Javier: 0.79 m/s MV DecT: 170 ms MV A Javier: 0.61 m/s MV E/A Ratio: 1.30 RAP: 5.00 mmHg RVSP: 34.74 mmHg FINDINGS -------- Sinus rhythm. This was a technically good study. The left ventricular size is normal. There is moderate concentric left ventricular hypertrophy. O verall left ventricular systolic function is moderate-severely impaired with, an EF between 30 - 35 % . Basal inferior LV wall motion is hypokinetic. Mid inferoseptal LV wall motion is hypokinetic. Apical anterior LV wall motion is hypokinetic. Apical lateral LV wall motion is hypokinetic. Apical inferior LV wall motion is hypokinetic. Apical septum LV wall motion is hypokinetic. The right ventricle is normal in size. Normal LA size by volume 22+/-6 ml/m2. The right atrium is normal in size. Interatrial and interventricular septum intact. The aortic valve is trileaflet, and appears structurally normal. No aortic stenosis or regurgitation. The mitral valve leaflets are mildly thickened. Mnoh-id-dpxpfpwe mitral regurgitation is present. Mild tricuspid regurgitation present. There is mild pulmonary hypertension. The right ventricular systolic pressure, as measured by Doppler, is 34.74mmHg. Trace/mild (physiologic) pulmonic regurgitation. The aortic root size is normal. Normal inferior vena cava with normal inspiratory collapse consistent with estimated right atrial pre ssure of 5 mmHg. There is no pericardial effusion. CONCLUSIONS -------- 1. The left ventricular size is normal. 2. There is moderate concentric left ventricular hypertrophy. 3. Overall left ventricular systolic function is moderate-severely impaired with, an EF between 30 - 35 %. 4. Basal inferior LV wall motion is hypokinetic. 5. Mid inferoseptal LV wall motion is hypokinetic. 6. Apical anterior LV wall motion is hypokinetic. 7. Apical lateral LV wall motion is hypokinetic. 8. Apical inferior LV wall motion is hypokinetic. 9. Apical septum LV wall motion is hypokinetic. 10. The aortic valve is trileaflet, and appears structurally normal. No aortic stenosis or regurgitat ion. 11. The mitral valve leaflets are mildly thickened. 12. Srtr-om-vzjwzira mitral regurgitation is present. 13. Mild tricuspid regurgitation present. 14. There is mild pulmonary hypertension. 15. The right ventricular systolic pressure, as measured by Doppler, is 34.74mmHg. 16. Trace/mild (physiologic) pulmonic regurgitation. 17. There is no pericardial effusion. MANAGER STAR: Bertha Tinoco RDCS
[2021-03-10 18:56] LABS: Chol/HDL Ratio 6.22 Ratio; HDL Cholesterol 33.9 mg/dL (40.00-60.00); LDL Cholesterol,Calculated 158.6 mg/dL (0.0-131.0); Triglycerides 92.7 mg/dL (0.00-149.00); VLDL Calculation 18.54 mg/dL (5.00-40.00)
[2021-03-10] MEDS: METOPROLOL TARTRATE 25 MG TAB PO SCH (21:00)
[2021-03-10] MEDS ORDERED: ATORVASTATIN 80 MG TAB PO SCH (21:00)
[2021-03-11] MEDS: SODIUM CHLORIDE 0.9% 1,000 ML in EMPTY BAG 1 BAG IV SCH ×2 (00:38→06:48)
[2021-03-11 04:36] VITALS: TEMP 98.2
[2021-03-11] MEDS: METOPROLOL TARTRATE 25 MG TAB PO SCH (07:46)
[2021-03-11] MEDS: FUROSEMIDE 20 MG TAB PO SCH (07:46)
[2021-03-11] MEDS ORDERED: SPIRONOLACTONE 25 MG TAB PO SCH (09:00)
[2021-03-11] MEDS ORDERED: ASPIRIN 325 MG TAB PO SCH (09:00)
[2021-03-11] MEDS ORDERED: lisinopriL 5 MG TAB PO SCH (09:00)
[2021-03-11] MEDS ORDERED: PRASUGREL 10 MG TAB PO SCH (09:00)
[2021-03-11 09:37] LABS: African American GFR (CKD) >90 (>60 ml/min/1.73 sqM); Non-African American GFR(CKD) >90 (>60 ml/min/1.73 sqM)
[2021-03-11 09:40] LABS: Basophils # (A) 0.1 k/uL (0-0.2); Basophils % (A) 1 %; Eosinophils # (A) 0.2 k/uL (0-0.7); Eosinophils % (A) 4 %; HCT 47.1 % (39.0-53.0); HGB 16.1 gm/dL (13.0-17.5); Lymphocytes # (A) 1.9 k/uL (1.0-4.8); Lymphocytes % (A) 41 %; MCH 30.7 pg (25.0-35.0); MCHC 34.2 g/dL (31.0-37.0); MCV 89.7 fL (80.0-100.0); Mean Platelet Volume 8.8; Monocytes # (A) 0.4 k/uL (0-1.0); Monocytes % (A) 9 %; Neutrophils # (A) 1.9 k/uL (1.3-7.7); Neutrophils % (A) 41 %; Platelet Count 225 k/uL (150-450); RBC 5.25 m/uL (4.30-5.90); RDW 14.3 % (11.5-15.5); WBC 4.6 k/uL (3.8-10.6)
--- NOTE | 2021-03-11 09:55 | P.PN ---
Subjective Progress Note Date: 03/11/21 03/11/2021, the patient is being of any chest pain. The patient underwent cardiac catheterization yesterday and the patient was found to have disease involving the LAD and diffuse disease involving the RCA. The patient had successful stenting of the proximal LAD with a drug-eluting stent. Currently is back on the medical floor. He is doing well. History of any chest pain. He was started on aspirin. He was also started on Effient. He is also on a combination of other drugs including statins in the form of Lipitor, Aldactone 25 mg by mouth daily, 25 mg by mouth twice a day. He is on room air oxygen. Blood pressures under and echocardiac Juanjo showed a moderate to severe impairment of LV function with an ejection fraction of 30-35% and there was also segmental wall motion abnormalities. His COVID-19 testing was negative. Troponins were elevated. Sed rate is only at 4. Objective - Vital Signs Vital signs: Vital Signs Temp 98.2 F 03/11/21 04:00 Pulse 70 03/11/21 07:38 Resp 16 03/11/21 07:38 BP 146/89 03/11/21 07:43 Pulse Ox 98 03/11/21 07:38 Intake & Output 03/10/21 03/11/21 03/11/21 18:59 06:59 18:59 Intake Total 840 240 Output Total 250 Balance 590 240 Weight 90.718 kg 90.1 kg Intake: Oral 840 240 Output: Urine 250 Other: Voiding Method Toilet Toilet # Voids 1 # Bowel Movements 1 - Exam The patient appeared well nourished and normally developed. Vital signs as documented. Head exam is unremarkable. No scleral icterus or corneal arcus noted. Neck is without jugular venous distension, thyromegaly, or carotid bruits. Carotid upstrokes are brisk bilaterally. Lungs are clear to auscultation and percussion. Cardiac exam reveals the PMI to be normally sized and situated. Rhythm is regular. First and second heart sounds normal. No murmurs, rubs or gallops. Abdominal exam reveals normal bowel sounds, no masses, no organomegaly and no aortic enlargement. Extremities are nonedematous and both femoral and pedal pulses are normal. - Labs CBC & Chem 7: 03/11/21 08:53 03/11/21 08:53 Labs: Abnormal Lab Results - Last 24 Hours (Table) 03/10/21 03/10/21 Range/Units 07:38 07:38 C-Reactive Protein 1.0 H (<1.0) mg/dL Cholesterol 211.00 H (0.00-200.00) mg/dL LDL Cholesterol, Calc 158.6 H (0.0-131.0) mg/dL HDL Cholesterol 33.90 L (40.00-60.00) mg/dL Assessment and Plan Plan: 1 acute non-STEMI with disease involving proximal LAD post stent insertion. The patient also has diffuse RCA disease. He is currently on medical treatment. His free of any chest pain. We will need risk factor modification. Hemodynamically stable. 2 abnormal CTA of the chest with mediastinal lymphadenopathy and increased interstitial markings, could be interstitial fluid versus ILD. High suspicion for sarcoidosis. 3 smoker 4 CHF with ejection fraction of 3035%, related to cardiomyopathy, likely ischemic in nature. He does have also elevated lipids end-diastolic pressure and mild to moderate pulmonary hypertension. Plan Continue aspirin and Effient Started The patient beta blockers and Aldactone 2-D echocardiogram was noted Outpatient workup regarding the son lymphadenopathy. Likely will need a bronchoscopy, chest buccal biopsy entrance but and he did aspirate of mediastinal lymph nodes regarding the possibility of sarcoidosis. Lymphoma is felt to be less likely. Other form of granulomatous infections are felt to be less likely. Noted the patient is on a combination of aspirin and Effient, this can be done later stage at least 6 months post coronary stenting. He will be followed up on outpatient basis.
--- NOTE | 2021-03-11 10:12 | P.PN ---
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 He underwent a heart catheterization and was found to have critical disease involving the proximal LAD which was stented. He also was found to have subtotally occluded medium- sized RCA fills by collateral. The echo showed impaired LV function with EF around 30% without significant valvular abnormalities. The patient was seen this morning. He is asymptomatic from the cardiac standpoint of view. I advised the patient to stay one more day here but he would like to go home because he could not sleep well during the night. He reports no symptoms of chest pain or chest discomfort and no shortness of breath. He has been maintaining normal sinus mechanism. Currently he is on maximize medical treatment includes dual antiplatelet therapy along with high intensity statin along with anti-ischemic medications along with diuretics including Aldactone. His LVEDP was elevated yesterday significantly. The right radial site is soft and nontender and without any bruises. I had a long disc ussion with him about the importance of sticking to dual antiplatelet therapy and the consequences if he stopped taking dual antiplatelet therapy prematurely. He was in full understanding and agreement. Objective - Vital Signs Vital signs: Vital Signs Temp 98.2 F 03/11/21 04:00 Pulse 70 03/11/21 07:38 Resp 16 03/11/21 07:38 BP 146/89 03/11/21 07:43 Pulse Ox 98 03/11/21 07:38 Intake & Output 03/10/21 03/11/21 03/11/21 18:59 06:59 18:59 Intake Total 840 240 Output Total 250 Balance 590 240 Weight 90.718 kg 90.1 kg Intake: Oral 840 240 Output: Urine 250 Other: Voiding Method Toilet Toilet # Voids 1 # Bowel Movements 1 - Constitutional General appearance: Present: no acute distress - Respiratory Respiratory: bilateral: CTA - Cardiovascular Rhythm: regular Heart sounds: normal: S1, S2 - Labs CBC & Chem 7: 03/11/21 08:53 03/11/21 08:53 Labs: Abnormal Lab Results - Last 24 Hours (Table) 03/10/21 03/10/21 Range/Units 07:38 07:38 C-Reactive Protein 1.0 H (<1.0) mg/dL Cholesterol 211.00 H (0.00-200.00) mg/dL LDL Cholesterol, Calc 158.6 H (0.0-131.0) mg/dL HDL Cholesterol 33.90 L (40.00-60.00) mg/dL Assessment and Plan Assessment: Assessment #1 acute coronary syndrome #2 severe 2 vessel CAD involving the LAD and RCA with the LAD being the culprit #3 impaired LV function #4 significant history of smoking #5 history of marijuana abuse #6 hypertension #7 dyslipidemia #8 elevated left-sided filling pressure Plan #1 continue the current medical regimen #2 the patient would like to go home. He would like to go home in spite of discussion with him about the importance of staying one more day. He still insisted about going home #3 the importance of taking the medications regularly was discussed with him in details.
[2021-03-11 10:18] LABS: Anion Gap 11 mmol/L; Blood Urea Nitrogen 13 mg/dL (9-20); Calcium 10.3 mg/dL (8.4-10.2); Carbon Dioxide 23 mmol/L (22-30); Chloride 103 mmol/L (98-107); Glucose 115 mg/dL (74-99); Magnesium 1.8 mg/dL (1.6-2.3); Potassium 4.1 mmol/L (3.5-5.1); Sodium 137 mmol/L (137-145)
--- NOTE | 2021-03-11 10:45 | P.DS ---
Providers Date of admission: 03/09/21 17:33 Expected date of discharge: 03/11/21 Attending physician: Krishna Barrow MD Consults: 03/09/21 17:33 Consult Physician Urgent Consulting Provider: Dillon Cabrales Consult Reason/Comments: CT abnormality - possible sarcoid vs vaccine reaction Do you want consulting provider notified?: Yes, Notify in am Consult Physician Urgent Consulting Provider: Alireza Ro Consult Reason/Comments: elevated trop Do you want consulting provider notified?: Already Contacted 03/10/21 12:29 Consult Physician Routine Consulting Provider: [facility] Consult Reason/Comments: Post Interventional patient Do you want consulting provider notified?: Already Contacted Primary care physician: [facility] None Hospital Course: The patient is a 40-year-old male with a PMH of tobacco abuse (who presents to the emergency room with complaints of chest discomfort and shortness of breath. The patient reports that his symptoms initially started a day after he received his Moderna COVID-19 vaccine on 12/17/2020. He reports having intermittent substernal chest discomfort, exertional for roughly 3 weeks after which it resolved spontaneously. He reports that the pain again returned 2-3 weeks ago and is now accompanied with shortness of breath. He reports that the pain continues to be exertional, starting from his upper chest and radiating to the right and left sides of his chest, 10 out of 10 on maximal intensity, nonpleuritic, alleviated with rest, strongly exertional in nature. 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 The patient was advised that since the facility did not have a cardiology service, that he would need to be transferred to hospitals in either [place] or [place], at which time the patient decided to sign out AGAINST MEDICAL ADVICE and returned to his home state of [place] and subsequently presented to our emergency room. He states that he's continued to have intermittent substernal discomfort which is not exertional and nonexertional in nature, 4 out of 10 at time of the interview. Denied fever, chills, cough. Denied headaches, neck pain, visual disturbances, weakness, numbness, tingling. Denied nausea, vomiting, abdominal pain, diarrhea. EKG in the emergency room revealed a normal sinus rhythm with left axis deviation at [address] depressions in inferior leads 2, 3, aVF, along with V3 to V6. Laboratory evaluation revealed a troponin of 0.285 and magnesium 1.5. The patient was started on heparin infusion and is being admitted for further management including cardiology consult. Patient was admitted to the hospital and was seen and evaluated by cardiology. He underwent left heart catheterization with successful stenting to the LAD. Echocardiogram showed evidence of ischemic cardiomyopathy with EF of 35%. Patient was started on optimal medical regimen. He was counseled extensively regarding medication compliance. He had a prolonged discussion with cardiology regarding the importance to stay for monitoring for another 24 hours that he was insistent that he would like to be discharged. He would be discharged home in a stable condition. He will follow-up in the office as directed. Patient Condition at Discharge: Fair Plan - Discharge Summary Discharge Rx Participant: No New Discharge Prescriptions: New Spironolactone [Aldactone] 25 mg PO DAILY #30 tab Furosemide [Lasix] 20 mg PO DAILY #30 tab Atorvastatin [Lipitor] 80 mg PO HS #30 tab lisinopriL [Zestril] 5 mg PO DAILY #30 tab Aspirin 81 mg PO DAILY #30 tab Prasugrel [Effient] 10 mg PO DAILY #30 tab Metoprolol Tartrate [Lopressor] 25 mg PO BID #60 tab Discharge Medication List Aspirin 81 mg PO DAILY #30 tab 03/11/21 [Rx] Atorvastatin [Lipitor] 80 mg PO HS #30 tab 03/11/21 [Rx] Furosemide [Lasix] 20 mg PO DAILY #30 tab 03/11/21 [Rx] Metoprolol Tartrate [Lopressor] 25 mg PO BID #60 tab 03/11/21 [Rx] Prasugrel [Effient] 10 mg PO DAILY #30 tab 03/11/21 [Rx] Spironolactone [Aldactone] 25 mg PO DAILY #30 tab 03/11/21 [Rx] lisinopriL [Zestril] 5 mg PO DAILY #30 tab 03/11/21 [Rx] Follow up Appointment(s)/Referral(s): [facility] [Provider Group] - 1 Week None,[facility] [Primary Care Provider] - 1-2 days Discharge Disposition: HOME SELF-CARE
[2021-03-11 11:34] VITALS: BP 134/87
[2021-03-11 13:00] VITALS: PULSE 67; RESP 18
[2021-03-11 14:03] LABS: Urine Alcohol Negative (Negative); Urine Barbiturate Negative (Negative); Urine Cocaine Negative (Negative); Urine Methadone Negative (Negative); Urine Opiates Negative (Negative); Urine Phencyclidine Negative (Negative)
== END 2021-03-11 13:18 | disposition home or self-care (01) | DRG 247 ==
LOC: EC 14:57 → 3SCARD 17:33
PROVIDERS: ADMIT Internal Medicine; ATTEND Internal Medicine
PROC: B2111ZZ Fluoroscopy of Multiple Coronary Arteries using Low Osmolar Contrast (ICD-10-PCS; 2021-03-10)
PROC: 027034Z Dilation of Coronary Artery, One Artery with Drug-eluting Intraluminal Device, Percutaneous Approach (ICD-10-PCS; principal; 2021-03-10 09:26)
PROC: 4A023N7 Measurement of Cardiac Sampling and Pressure, Left Heart, Percutaneous Approach (ICD-10-PCS; 2021-03-10 09:26)
DX: I21.4 Non-ST elevation (NSTEMI) myocardial infarction (principal); E78.5 Hyperlipidemia, unspecified; E83.42 Hypomagnesemia; F17.210 Nicotine dependence, cigarettes, uncomplicated; I10 Essential (primary) hypertension; I25.10 Atherosclerotic heart disease of native coronary artery without angina pectoris; I25.5 Ischemic cardiomyopathy; J43.9 Emphysema, unspecified; Z20.822 Contact with and (suspected) exposure to COVID-19; Z79.899 Other long term (current) drug therapy; Z82.49 Family history of ischemic heart disease and other diseases of the circulatory system; F12.10 Cannabis abuse, uncomplicated
CPT/HCPCS: 36415; 71046; 80048; 80053; 80061; 80306; 82164; 83735; 83880; 84484; 85025; 85379; 85610; 85652; 85730; 86140; 87635; 93005; 93306; 93458; 96374; 99285

== ENCOUNTER 2021-08-23 12:49 | Day surgery (SDC) | payer OTHER ==
[2021-08-22 13:16] VITALS: BMI 26.2
[~2021-08-23 12:49] MED LIST: ALBUTEROL NEB (CONC) 2.5 MG/0.5 ML INHALATION ONE; LACTATED RINGERS 1,000 ML IV SCH; LIDOCAINE 1% (10MG/ML) FOR IV START INTRADERMA PRN; LIDOCAINE 2% (PF) 20 MG/ML 5 ML VIAL INHALATION ONE; LIDOCAINE VISCOUS 300 MG/15 ML CUP MUCOUS MEM ONE
[2021-08-23 13:14] VITALS: TEMP 98
[2021-08-23] MEDS ORDERED: GLYCOPYRROLATE 0.2 MG/ML 2 ML VIAL ONE (13:50)
[2021-08-23] MEDS ORDERED: SUCCINYLCHOLINE CHLORIDE 100 MG/5 ML SYR IV ONE (13:50)
[2021-08-23] MEDS ORDERED: NEOSTIGMINE 1 MG/ML 10 ML VIAL ONE (13:50)
[2021-08-23] MEDS ORDERED: MIDAZOLAM 2 MG/2 ML VIAL ONE (13:50)
[2021-08-23] MEDS ORDERED: ROCURONIUM 10 MG/ML (5 ML VIAL) IV ONE (13:50)
[2021-08-23] MEDS ORDERED: fentaNYL (PF) 50 MCG/ML 2 ML AMP ONE (13:50)
[2021-08-23] MEDS ORDERED: PROPOFOL 10 MG/ML 20 ML VIAL IV ONE (13:50)
[2021-08-23] MEDS ORDERED: LIDOCAINE 1% INJ 10MG/ML (20 ML MDV) ONE (13:50)
--- NOTE | 2021-08-23 14:46 | FL ---
EXAMINATION TYPE: FL bronchoscopy DATE OF EXAM: 08/23/2021 FLUOROSCOPY Fluoroscopy time of 31 seconds was used during bronchoscopy. 1 image/s document/s the procedure.
--- NOTE | 2021-08-23 14:55 | P.PCN ---
Date of Procedure: 08/23/21 Preoperative Diagnosis: mediastinal lymphadenopathy, rule out sarcoidosis Postoperative Diagnosis: mediastinal lymphadenopathy, rule out sarcoidosis Procedure(s) Performed: flexible bronchoscopy Transbronchial Biopsies of the right lower lobe bronchioloalveolar lavage of the right middle lobe (RML) EBUS bronchoscopy and evaluation mediastinal lymph nodes EBUS guided transbronchial needle aspirate of station 7 and station 11 R lymph nodes Operative Findings: Surgeon: Dillon Cabrales Lard Maker #1: Randi Costello Estimated Blood Loss (ml): 0 Pathology: other Condition: stable Disposition: same day Operative Findings: After obtaining the consent the patient was taken to the OR suite he was intubated and put on mechanical ventilation by anesthesia then the scope was advanced to the ET tube until the Trachea was seen and it was normal and then the darrius appears normal then the scope advanced to the left main and GIORGI LB1- LB3 were seen and no endobronchial lesions were seen then the scope advanced to the lingula and the LB4 and LB5 were seen and no endobronchial lesions were seen the scope retracted and advanced to the left lower lobes LB6 to LB12 were seen one by one and no endobronchial lesions, then the scope was retracted back to the darrius and advanced to the Right main and RUL RB1 and RB2 and RB3 were seen one by one and no endobronchial lesions were seen the scope then retracted and advanced to the BI and RML RB4 and RB5 were seen and no endobronchial lesions were seen then it was retracted and advanced to the RLL RB6 to RB12 were seen one by one and no endobronchial lesions. the flexible bronchoscope was directed then to the right middle lobe and a BAL of right middle lobe was done. A total of 80 mL of fluid was infused at around 20 mL was suctioned back without any complications. Following that, the bron choscope was directed to the right lower lobe and transbronchial biopsies of the right lower lobe anterior and lateral segment was done under fluoroscopic guidance multiple biopsies were obtained . No evidence of any bleeding. The biopsy procedure was completed without any issues or complications. Then EBUS was used and the lymph nodes were examined. Direct measurement of the mediastinal lymph nodes revealed station 7 lymph node that was measuring 22 x 19 mm in size, station 10 R measuring 22 x 19 mm in size, station 11 R superior measuring 20 x 23 mm in size and station 11 R inferior measuring 20 x 21 mm in size. I performed transbronchial needle aspirate of station 7 lymph nodes were a total of 3 passes were obtained, and station 11 R I amd a total of 3 passes were taken. the samples were sent into formalin and RPM solution to evaluate for lymphoma. No major bleeding and the scope was removed and taken out in total the patient was send to the floor in stable condition The bronchoscope was removed, the patient will be extubated and then transferred to recovery. A follow-up chest x-ray will be done in recovery..
[2021-08-23] MEDS ORDERED: LACTATED RINGERS 1,000 ML IV ONE (15:18)
--- NOTE | 2021-08-23 15:42 | XR ---
EXAMINATION TYPE: XR chest 1V DATE OF EXAM: 08/23/2021 COMPARISON: 08/21/2021 HISTORY: 41-year-old male post biopsy exam TECHNIQUE: Single frontal view of the chest is obtained. FINDINGS: Heart upper limits of normal in size. New right basilar airspace opacity. No appreciable pneumothorax . No sizable effusion. IMPRESSION: New right basilar airspace disease. Possible biopsy related pulmonary contusion. Correlate to exclude aspiration.
[2021-08-23 15:55] VITALS: RESP 16
[2021-08-23 16:19] VITALS: BP 111/65; PULSE 66
== END 2021-08-23 16:17 | disposition home or self-care (01) ==
LOC: ORWHC2ENDO 12:49
PROVIDERS: ATTEND Internal Medicine Critical Care Medicine
DX: R59.0 Localized enlarged lymph nodes (principal); I10 Essential (primary) hypertension; I25.10 Atherosclerotic heart disease of native coronary artery without angina pectoris; E78.5 Hyperlipidemia, unspecified; F17.210 Nicotine dependence, cigarettes, uncomplicated; Z95.1 Presence of aortocoronary bypass graft; Z79.82 Long term (current) use of aspirin; Z79.899 Other long term (current) drug therapy; Z79.02 Long term (current) use of antithrombotics/antiplatelets
CPT/HCPCS: 31628; 31624; 31652; 87798 ×3; 87496; 87498; 87529; 88108; 88305; 87252; 87502; 87634; 87070; 87205; 87116; 87102; 87206; 71045; J2250; J2710; J2001; J3010; J0330; J2704; 88312